=== PATIENT | female | born 1995 | race African-American/Black ===

== ENCOUNTER 2018-10-19 03:14 | Emergency (ER) | payer OTHER ==
[~2018-10-19] VITALS: Ht 165.1 cm; Wt 85.7 kg
[~2018-10-19 03:14] MED LIST: CIPRO500 MG PO; PRILOSEC 20 MG20 MG PO; TRAMADOL 50 MG50 MG PO; UNICOMPLEX M TA1 TA1 PO; ZOFRAN ODT4 MG PO
[2018-10-19 03:56] LABS: URINE BILIRUBIN NEGATIVE (Negative); URINE BLOOD 1+ (Negative); URINE CLARITY CLEAR; URINE COLOR YELLOW; URINE GLUCOSE-RANDOM* NEGATIVE (Negative); URINE KETONES NEGATIVE (Negative); URINE NITRITE-REFLEX NEGATIVE (Negative); URINE PROTEIN (DIPSTICK) NEGATIVE (Negative); URINE UROBILINOGEN 0.2 E.U./dl (0.2-1.0)
[2018-10-19 04:00] LABS: URINE LEUKOCYTES-REFLEX 2+ (Negative)
[2018-10-19 04:07] LABS: MUCUS 0-3 Light strn/LPF (None Seen); SQUAMOUS >10 Many /LPF (0-3)
[2018-10-19 04:08] LABS: BACTERIA-REFLEX >30 Many /HPF (None Seen); CASTS None Seen /LPF (None Seen)
[2018-10-19 04:09] LABS: CRYSTALS None Seen /LPF (None Seen); YEAST-REFLEX Present (None Seen)
[2018-10-19 04:22] LABS: HEMATOCRIT 26.3 % (37.0-47.0); HEMOGLOBIN 8.4 gm/dL (12.0-15.0); MCH 20.1 pg (26.0-34.0); MCHC 31.8 g/dL (28.0-37.0); MCV 63.2 fL (80.0-100.0); RBC 4.16 mil/uL (4.20-5.00); RDW 17.7 % (10.5-14.5); WBC 6.7 thou/uL (4.0-11.0)
[2018-10-19 04:24] LABS: CALCIUM 8.4 mg/dL (8.5-10.1); CREATININE 0.6 mg/dL (0.6-1.0); POTASSIUM 3.6 mmol/L (3.5-5.1)
[2018-10-19] MEDS ORDERED: MOBIC15 MG PO (06:09)
[2018-10-19] MEDS ORDERED: CIPROFLOXACIN500 M1 PO (06:09)
[2018-10-19 06:56] VITALS: BP 139/85
== END 2018-10-19 06:57 | disposition home or self-care (01) ==
LOC: ER 03:14
PROVIDERS: Emergency Medicine
DX: N12 Tubulo-interstitial nephritis, not specified as acute or chronic (principal); J45.909 Unspecified asthma, uncomplicated; I10 Essential (primary) hypertension; F32.9 Major depressive disorder, single episode, unspecified; Z90.49 Acquired absence of other specified parts of digestive tract; Z88.0 Allergy status to penicillin; Z88.1 Allergy status to other antibiotic agents; Z88.2 Allergy status to sulfonamides; Z88.8 Allergy status to other drugs, medicaments and biological substances

== ENCOUNTER 2019-04-01 16:31 | Emergency (ER) | payer OTHER ==
[~2019-04-01] VITALS: Ht 165.1 cm; Wt 80.7 kg
[~2019-04-01 16:31] MED LIST changes: +CIPROFLOXACIN500 M1 PO; +MOBIC15 MG PO
[2019-04-01 17:47] LABS: ABSOLUTE NEUTROPHILS 6.7 thou/uL (1.4-8.2); BASOPHILS 0.7 % (0.0-2.0); EOSINOPHILS 0.6 % (0.0-3.0); HEMATOCRIT 38.5 % (37.0-47.0); HEMOGLOBIN 13.1 gm/dL (12.0-15.0); LYMPHOCYTES 22.4 % (24.0-44.0); MCH 30.1 pg (26.0-34.0); MCHC 33.9 g/dL (28.0-37.0); MCV 88.5 fL (80.0-100.0); MONOCYTES 7.9 % (1.0-8.0); PLATELET COUNT 355 thou/uL (150-400); POLYS 68.4 % (36.0-66.0); RBC 4.34 mil/uL (4.20-5.00); RDW 14.3 % (10.5-14.5); WBC 9.8 thou/uL (4.0-11.0)
[2019-04-01 17:51] LABS: CALCIUM 8.9 mg/dL (8.5-10.1); CREATININE 0.8 mg/dL (0.6-1.0); POTASSIUM 4.3 mmol/L (3.5-5.1)
[2019-04-01 17:57] LABS: ALBUMIN 3.6 g/dL (3.4-5.0); TOTAL BILIRUBIN 0.8 mg/dL (<0.1-1.0); TOTAL PROTEIN 7.3 g/dL (6.4-8.2)
[2019-04-01 19:43] LABS: URINE BILIRUBIN NEGATIVE (Negative); URINE BLOOD NEGATIVE (Negative); URINE CLARITY CLOUDY; URINE COLOR YELLOW; URINE GLUCOSE-RANDOM* NEGATIVE (Negative); URINE KETONES TRACE (Negative); URINE LEUKOCYTES-REFLEX NEGATIVE (Negative); URINE NITRITE-REFLEX NEGATIVE (Negative); URINE PROTEIN (DIPSTICK) TRACE (Negative); URINE SPECIFIC GRAVITY 1.025 (1.005-1.035)
[2019-04-01] MEDS ORDERED: NORCO 5-325 TA1 EAC1 PO (20:15)
[2019-04-01] MEDS ORDERED: NAPROSYN500 MG PO (20:15)
[2019-04-01 20:49] VITALS: BP 118/63
== END 2019-04-01 20:49 | disposition home or self-care (01) ==
LOC: ER 16:31
PROVIDERS: Physician Assistant
DX: R10.11 Right upper quadrant pain (principal); J45.909 Unspecified asthma, uncomplicated; I10 Essential (primary) hypertension; F32.9 Major depressive disorder, single episode, unspecified; Z88.1 Allergy status to other antibiotic agents; Z88.8 Allergy status to other drugs, medicaments and biological substances; Z88.0 Allergy status to penicillin; Z88.2 Allergy status to sulfonamides; Z90.49 Acquired absence of other specified parts of digestive tract

== ENCOUNTER 2019-04-02 07:57 | Inpatient (IN) | payer OTHER ==
[~2019-04-02] VITALS: Ht 165.1 cm; Wt 79.8 kg
[~2019-04-02 07:57] MED LIST changes: +NAPROSYN500 MG PO; +NORCO 5-325 TA1 EAC1 PO
[2019-04-02 07:58] VITALS: BP 121/69
[2019-04-02 08:22] LABS: URINE BLOOD 2+ (Negative); URINE COLOR YELLOW; URINE GLUCOSE-RANDOM* NEGATIVE (Negative); URINE KETONES TRACE (Negative); URINE LEUKOCYTES TRACE (Negative); URINE NITRITE POSITIVE (Negative); URINE PROTEIN (DIPSTICK) 1+ (Negative); URINE SPECIFIC GRAVITY 1.025 (1.005-1.035)
[2019-04-02 08:23] LABS: URINE CLARITY CLOUDY
[2019-04-02 08:24] LABS: ICTOTEST (BILI CONFIRMATORY) Negative (Negative); URINE BILIRUBIN NEGATIVE (Negative)
[2019-04-02 08:29] LABS: ABSOLUTE NEUTROPHILS 2.3 thou/uL (1.4-8.2); BASOPHILS 0.8 % (0.0-2.0); EOSINOPHILS 5.4 % (0.0-3.0); HEMATOCRIT 27.1 % (37.0-47.0); LYMPHOCYTES 29.7 % (24.0-44.0); MCH 19.4 pg (26.0-34.0); MCHC 29.6 g/dL (28.0-37.0); MONOCYTES 6.7 % (1.0-8.0); PLATELET COUNT 289 thou/uL (150-400); POLYS 57.4 % (36.0-66.0); RBC 4.14 mil/uL (4.20-5.00); RDW 18.3 % (10.5-14.5)
[2019-04-02 08:30] LABS: MCV 65.3 fL (80.0-100.0)
[2019-04-02 08:33] LABS: CALCIUM 8.9 mg/dL (8.5-10.1); CREATININE 0.7 mg/dL (0.6-1.0)
[2019-04-02 08:34] LABS: POTASSIUM 3.1 mmol/L (3.5-5.1)
[2019-04-02 08:39] LABS: ALBUMIN 3.9 g/dL (3.4-5.0); TOTAL BILIRUBIN 0.5 mg/dL (<0.1-1.0)
[2019-04-02 08:40] LABS: CASTS None Seen /LPF (None Seen); CRYSTALS None Seen /LPF (None Seen); SQUAMOUS >10 Many /LPF (0-3)
[2019-04-02 08:42] LABS: BACTERIA >30 Many /HPF (None Seen); URINE RBC 0-2 Rare /HPF (0-2); URINE WBC 6-15 Few /HPF (0-5)
[2019-04-02 09:00] LABS: ANISOCYTOSIS 3+; HYPOCHROMASIA 1+; MICROCYTES 3+; OVALOCYTES 2+; PLATELET ESTIMATE NORMAL; SCHISTOCYTES 1+
[2019-04-02 10:57] LABS: HEMOGLOBIN 7.6 gm/dL (12.0-15.0); WBC 4.3 thou/uL (4.0-11.0)
[2019-04-02 11:00] LABS: ABSOLUTE NEUTROPHILS 2.3 thou/uL (1.4-8.2); BASOPHILS 1.2 % (0.0-2.0); EOSINOPHILS 4.5 % (0.0-3.0); HEMATOCRIT 25.6 % (37.0-47.0); LYMPHOCYTES 35.6 % (24.0-44.0); MCH 19.4 pg (26.0-34.0); MCHC 29.6 g/dL (28.0-37.0); MCV 65.5 fL (80.0-100.0); MONOCYTES 5.3 % (1.0-8.0); PLATELET COUNT 263 thou/uL (150-400); POLYS 53.4 % (36.0-66.0); RBC 3.91 mil/uL (4.20-5.00); RDW 18.2 % (10.5-14.5)
[2019-04-02 11:22] LABS: CALCIUM 8.5 mg/dL (8.5-10.1); CREATININE 0.7 mg/dL (0.6-1.0); POTASSIUM 3.7 mmol/L (3.5-5.1)
[2019-04-02 12:40] VITALS: BP 119/72
[2019-04-02 12:48] LABS: % SATURATION 5 % (20-39); IRON 18 ug/dL (50-170); TIBC 398 ug/dL (250-450)
[2019-04-02 12:56] LABS: ANISOCYTOSIS 2+; MICROCYTES 2+; OVALOCYTES 1+; PLATELET ESTIMATE NORMAL
[2019-04-02 13:25] LABS: FOLIC ACID 10.4 ng/mL (8.6-58.9)
[2019-04-02 16:54] VITALS: BP 105/67
[2019-04-02 17:15] VITALS: BP 108/83
--- NOTE | 2019-04-02 18:09 | NUR ---
PT ADMITED FROM ER. ADMISSION HX AND ASSESSMENT COMPLETED. VSS. REPORT HAVING RIGHT ABD PAIN. PRN MED GIVEN. NPO AFTER MIDNIGHT. PT ORIENTED TO THE ROOM AND THE CALL LIGHT SYSTEM. WILL CONTINUE TO MONITOR.
[2019-04-02 19:32] VITALS: BP 101/45
[2019-04-03] VITALS (7 sets, daily range): BP systolic 104–126; BP diastolic 52–83
--- NOTE | 2019-04-03 05:36 | NUR ---
ASSUMED CARE OF PT AT 1900. PT C/O RUQ PAIN. IV AND PO PAIN MEDICATION GIVEN THROUGHOUT NIGHT TO MANAGE PAIN. PT IS SCHEDULED TO HAVE ERCP TODAY 04/03. PT NPO PER ORDER. WILL CONTINUE TO MONITOR PER POC.
[2019-04-03 05:49] LABS: HEMATOCRIT 23.3 % (37.0-47.0); MCH 19.4 pg (26.0-34.0); MCHC 30.1 g/dL (28.0-37.0); MCV 64.4 fL (80.0-100.0); RBC 3.62 mil/uL (4.20-5.00); RDW 18.4 % (10.5-14.5)
--- NOTE | 2019-04-03 13:42 | NUR ---
Received awake on bed. Due medications given as prescribed, pt on NPO- pt informed and aware. A+Ox4. On room air. complained of pain, due PRN pain meds given as prescribed. Up ad coco. with relative at bedside. with SL at L AC- intact and flushing well. Pt for ERCP and stent removal today- a/w time of procedure. Called GI lab re: time of procedure, preparation for procedure and consent, as per GI staff pt can sign consent downstairs, pt may need another IV line if current one is at L AC- new line inserted at L hand. Will take pt done between 9:30-10:30am, pt informed. Pt taken down for procedure at 9:15am. A/w further updates.
[2019-04-03 21:51] LABS: HEMOGLOBIN 8.2 gm/dL (12.0-15.0)
[2019-04-04 05:27] VITALS: BP 96/38
[2019-04-04 05:40] LABS: HEMOGLOBIN 7.7 gm/dL (12.0-15.0); MCH 20.5 pg (26.0-34.0); MCHC 30.7 g/dL (28.0-37.0); MCV 66.7 fL (80.0-100.0); RBC 3.74 mil/uL (4.20-5.00); RDW 19.8 % (10.5-14.5); WBC 3.2 thou/uL (4.0-11.0)
[2019-04-04 05:52] LABS: CALCIUM 8.2 mg/dL (8.5-10.1); CREATININE 0.7 mg/dL (0.6-1.0); POTASSIUM 3.8 mmol/L (3.5-5.1)
--- NOTE | 2019-04-04 07:36 | NUR ---
ASSUMED PT CARE AT 1900. PT IS ALERT AND ORIENTED LAYING IN BED, CRYING. PT STATED SHE WAS IN PAIN. PAIN MED ADMINISTERED TO PT. BLOOD TRANSFUSION COMPLETED AFTER ARRIVAL ON SHIFT. PT TOLEARTED BLOOD ADMINISTRATION. NO SIGN OF DISTRESS NOTED. ASSESSMENT COMPLETED AND DOUMENTED. VSS. SCHEDULED MEDS ADMINISTERED TO PT. PT TOLERATED PO INTAKE. PAIN IS ADEQUATELY MANAGE THROUGHOUT THE NIGHT, DENIES ANY FURTHER NEEDS AT THIS TIME.
[2019-04-04 09:05] VITALS: BP 117/74
[2019-04-04 14:33] LABS: ALBUMIN 3.1 g/dL (3.4-5.0); TOTAL BILIRUBIN 0.5 mg/dL (<0.1-1.0); TOTAL PROTEIN 6.9 g/dL (6.4-8.2)
[2019-04-04 17:07] VITALS: BP 115/60
--- NOTE | 2019-04-04 17:15 | NUR ---
ASSUMED CARE AT 1230, ALERT AND ORIENTED X4. C/O ABD PAIN MEDICATED NEEDED. PATIENT WAS EATING SALAD IN THE ROOM, BROUGHT BY FAMILY AND THIS NURSE ADVISED THE PATIENT ABOUT EATING AND FOLLOWING DR INSTRUCTIONS FOR CLEAR LIQUID DIET.DR ASENCIO NOTIFIED. AND WILL CONTINUE WITH POC.
[2019-04-04 20:00] VITALS: BP 121/79
--- NOTE | 2019-04-05 03:01 | NUR ---
ASSUMED CARE AROUND 1900. AXOX4. MODERATE PAIN TO RUQ. MEDICATED PER MD ORDER. NO S/S ACUTE DISTRESS NOTED OR REPORTED AT THIS TIME. WILL CONT TO MONITOR FOR ANY CHANGES IN CONDITION.
[2019-04-05 09:01] VITALS: BP 123/77
[2019-04-05 09:31] LABS: HEMATOCRIT 27.2 % (37.0-47.0); HEMOGLOBIN 8.6 gm/dL (12.0-15.0); MCH 21.3 pg (26.0-34.0); MCHC 31.6 g/dL (28.0-37.0); MCV 67.4 fL (80.0-100.0); RBC 4.03 mil/uL (4.20-5.00); RDW 19.7 % (10.5-14.5); WBC 3.9 thou/uL (4.0-11.0)
[2019-04-05 09:44] LABS: ALBUMIN 3.2 g/dL (3.4-5.0); CALCIUM 8.4 mg/dL (8.5-10.1); CREATININE 0.7 mg/dL (0.6-1.0); POTASSIUM 3.6 mmol/L (3.5-5.1); TOTAL BILIRUBIN 0.2 mg/dL (<0.1-1.0); TOTAL PROTEIN 6.9 g/dL (6.4-8.2)
[2019-04-05 13:04] VITALS: BP 125/72
[2019-04-05 16:20] VITALS: BP 135/95
--- NOTE | 2019-04-05 17:01 | NUR ---
ASSUMED CARE AT SHIFT CHANGE, ALERT AND ORIENTED X4. VSS. GLYCOL PO GIVEN AND PATIENT HAD 3 BM, AND SHE TOLERATED MEDICATION WELL. NPO AFTER MN FOR EGD AND CLONOSCOPY.C/O PAIN AND NAUSEA X1 TODAY AND MEDICATED. AND WILL CONTINUE WITH POC.
[2019-04-05 18:45] VITALS: BP 127/67
[2019-04-05 19:15] VITALS: BP 116/68
--- NOTE | 2019-04-06 04:49 | NUR ---
ASSUMED CARE AROUND 1900. AXOX4. BOWEL PREP COMPLETED. KEPT NPO AFTER MN FOR EGD AND COLONOSCOPY IN AM. NO S/S ACUTE DISTRESS NOTED OR REPORTED AT THIS TIME. WILL CONT TO MONITOR FOR ANY CHANGES IN CONDITION.
[2019-04-06 08:15] VITALS: BP 112/60
--- NOTE | 2019-04-06 14:21 | NUR ---
Assumed pt care this am, received NPO and bowels clear fro colonoscopy and EGD. Pt was taken down shortly after shift changed and returned at 9:15 am. VS have been stable, pt is up at coco. Denies and nausea or vomiting, mild discomfort felt post op but pt did not ask for any pain medication. Pt wanting to go home today stating she is feeling so much better. POC followed no signs of distress have been noted.
[2019-04-06] MEDS ORDERED: ACETAMINOPHEN325 M1 PO (15:03)
[2019-04-06] MEDS ORDERED: DOXYCYCLINE 10100 MG PO (15:03)
[2019-04-06] MEDS ORDERED: PERCOCET 10-321 EACH PO (15:03)
[2019-04-06] MEDS ORDERED: AMBIEN 5 MG TABL5 M1 PO (15:03)
[2019-04-06 15:21] VITALS: BP 112/60
--- NOTE | 2019-04-07 15:37 | P ---
[facility] [place] [address] [place] [address] PROCEDURE REPORT Name: BRICE DE GUZMAN Room #: 458-P [facility] IN M.R.#: [id number] Admission: 04/02/19 ������������������ Attend Phys: Asad Adorno MD Discharge: 04/06/19 ������������������ Date of : 89 Report #: [id number] THIS REPORT FOR: //name// CC: DON physician/PCP Asad Adorno NO PCP INPATIENT COLONOSCOPY BRIEF HISTORY: The patient is a 23-year-old woman with marked iron deficiency anemia requiring blood transfusion. She reports that her menses are normal. PREOPERATIVE DIAGNOSIS: Iron deficiency anemia. POSTOPERATIVE DIAGNOSIS: Small internal hemorrhoids. MEDICATIONS: Deep sedation with propofol per anesthesia. SPECIMEN: None. ESTIMATED BLOOD LOSS: None. PROCEDURE: Colonoscopy to cecum and terminal ileum. FINDINGS: Prior to propofol sedation, procedure of colonoscopy discussed with the patient as well as potential risks and its complications. She indicates she understands and desires to proceed. DESCRIPTION OF PROCEDURE: With the patient in left lateral decubitus position, digital examination was completed, which revealed no abnormalities. Subsequently, the Olympus video colonoscope was introduced in the rectum and advanced under direct vision to the cecum. This was done with minimal difficulty. The cecum was identified by the ileocecal valve and the appendiceal orifice. I was able to visualize the distal segment of the terminal ileum, which was inspected and noted to be unremarkable. At that point, the scope was slowly withdrawn and careful circumferential views were obtained including retroflexing the scope in the ascending colon. Upon slow withdrawal of the scope, the mucosa was inspected. There were some limitations of the prep in the proximal colon. There was a thin coating of bilious material. Unfortunately, it was not very tenacious and much of it washed off with the scope irrigated. We extensively cleaned the proximal colon and overall obtained a good prep. At that point, the scope was slowly withdrawn and careful circumferential views were obtained including retroflexion. The mucosa was within normal limits, normal vascular pattern, normal light reflex. No mucosal abnormalities were seen. No blood was seen on this examination. Possible bleeding lesions were not seen. Specifically, AVMs or vascular ectasias were not seen. No neoplastic lesions were seen. The scope was withdrawn in the rectum and no abnormalities [facility] [address] [place] [address] PROCEDURE REPORT Name: BRICE DE GUZMAN Room #: 458-P DIS IN M.R.#: [id number] Admission: 04/02/19 ������������������ Attend Phys: Asad Adorno MD Discharge: 04/06/19 ������������������ Date of : [birth year] Report #: [id number] were seen. Upon retroflexion, small hemorrhoids were seen. The scope was withdrawn. The patient tolerated the procedure well. DISPOSITION: The patient with marked iron deficiency anemia. No bleeding lesions or mucosal abnormalities were seen. This patient should be on iron supplementation. I suggest she see a collar baster jumpbasting as I suspect her anemia was primarily related to blood loss from her menses. If further GI evaluation is deemed to be necessary, evaluation of the small bowel would be the next step. Also, please see upper endoscopy report for additional details. ��������������������������������������������� <ELECTRONICALLY SIGNED> ���������������������������������������� By: Jese Maldonado MD ��������������������������������������������� 04/07/19 1537 1030 [id number] Jese Maldonado MD /nt
--- NOTE | 2019-04-07 15:37 | P ---
[facility] [place] [address] [place] [address] PROCEDURE REPORT Name: BRICE DE GUZMAN Room #: 458-P [facility] IN M.R.#: [id number] Admission: 04/02/19 ������������������ Attend Phys: Asad Adorno MD Discharge: 04/06/19 ������������������ Date of : [birth year] Report #: [id number] THIS REPORT FOR: //name// CC: DON physician/PCP Asad CHAVEZ PCP DATE OF SERVICE: 04/06/2019 BRIEF HISTORY: The patient is a 23-year-old woman with marked iron deficiency anemia. She has been asymptomatic. She reports her menstrual periods are normal. PREOPERATIVE DIAGNOSIS: Marked iron deficiency anemia requiring blood transfusion. POSTOPERATIVE DIAGNOSIS: Mild erythematous gastritis. MEDICATIONS: Deep sedation with propofol per anesthesia. SPECIMENS: 1. Small bowel biopsies to rule out celiac disease. 2. Biopsies of gastritis. ESTIMATED BLOOD LOSS: 3 mL. PROCEDURE: EGD with biopsy. FINDINGS: Prior to propofol sedation, procedure of upper endoscopy discussed with the patient as well as potential risks and its complications. She indicates she understands and desires to proceed. DESCRIPTION OF PROCEDURE: With the patient in left lateral decubitus position, the Olympus video endoscope was inserted in the cervical esophagus under direct vision without difficulty. Examination of this organ through its entire length revealed normal esophageal mucosa down the squamocolumnar junction. The squamocolumnar junction was inspected and noted to be unremarkable. No evidence of ulcers, erosions or bleeding lesions. A hiatus hernia was not seen. The scope was advanced in the stomach, was examined on end view as well as retroflexed views. There was a pattern of diffuse gastritis. There were linear erythematous changes in the antrum and body. However, no ulcers or erosions were seen. No blood was seen. AVMs were not seen. Upon retroflexion, no mass lesions were seen. Random biopsies were obtained. The pylorus, duodenal bulb and postbulbar duodenal sweep were inspected and noted to be unremarkable. No evidence of ulcers, erosions or AVMs. Multiple biopsies were obtained to evaluate for celiac disease. At that point, the scope was slowly withdrawn and [facility] [address] [place] [address] PROCEDURE REPORT Name: GEGEBRICE Room #: 458-P [facility] IN M.R.#: [id number] Admission: 04/02/19 ������������������ Attend Phys: Asad Adorno MD Discharge: 04/06/19 ������������������ Date of : [birth year] Report #: [id number] careful circumferential views confirmed the above findings. The patient tolerated the procedure well. DISPOSITION: No obvious source for gastrointestinal blood loss. Proceed with colonoscopy at this time. Follow up on biopsies. ��������������������������������������������� <ELECTRONICALLY SIGNED> ���������������������������������������� By: Jese Maldonado MD ��������������������������������������������� 04/07/19 1537 0956 [id number] Jese Maldonado MD /nt
--- NOTE | 2019-04-07 15:37 | P ---
[facility] [place] [address] [place] [address] PROCEDURE REPORT Name: BRICE DE GUZMAN Room #: 458-P [facility] IN M.R.#: [id number] Admission: 04/02/19 ������������������ Attend Phys: Asad Adorno MD Discharge: 04/06/19 ������������������ Date of : 93 Report #: [id number] THIS REPORT FOR: //name// CC: DON physician/PCP Asad Adorno NO PCP BRIEF HISTORY: The patient is a 23-year-old woman with a history of cholelithiasis and choledocholithiasis in 2017. ERCP and sphincterotomy was performed, but the stones could not be removed from the duct and a stent was placed. She subsequently had a laparoscopic cholecystectomy. An intraoperative cholangiogram was obtained, but the stones could not be removed. The patient was to return in several months to have the stent removed as well as stone removal. She did not return as instructed. She then presented to [facility] yesterday with 1 week of epigastric and right upper quadrant pain. CT reveals an indwelling stent within the common bile duct. She also has ductal dilation. PREOPERATIVE DIAGNOSIS: Choledocholithiasis with indwelling biliary stent. POSTOPERATIVE DIAGNOSES: 1. Choledocholithiasis. 2. Indwelling biliary stent. MEDICATIONS: Intubation general anesthesia. SPECIMEN: The stent and multiple stones removed and discarded. ESTIMATED BLOOD LOSS: None. PROCEDURE: EGD with removal of stent followed by ERCP, sphincterotomy and stone extraction. FINDINGS: Prior to intubation and general anesthesia, the procedure of ERCP, stent removal and stone removal was discussed with the patient as well as potential risks and its complications. She indicates she understands and desires to proceed. DESCRIPTION OF PROCEDURE: The patient was induced with general anesthesia and placed in the prone position. Subsequently, the Olympus video endoscope was inserted in cervical esophagus under direct vision without difficulty. Examination of this organ through its entire length revealed normal esophageal mucosa. Squamocolumnar junction was unremarkable. The scope was advanced in the stomach, was examined on end view as well as retroflexed views and was unremarkable. The pylorus was normal. Duodenal bulb was normal. The scope was advanced into the second portion of duodenum and the stent was seen exiting from the duodenal papilla. The stent was grasped with a polypectomy snare, and the [facility] [address] [place] [address] PROCEDURE REPORT Name: BRICE DE GUZMAN Room #: 458-P [facility] IN .R.#: [id number] Admission: 04/02/19 ������������������ Attend Phys: Asad Adorno MD Discharge: 04/06/19 ������������������ Date of : [birth year] Report #: [id number] stent and scope were pulled out in tandem. The stent was examined once this was removed. It was encrusted with a crystal like material. Also, the stent was completely intact and thus the entire stent was removed with this maneuver. Subsequently, the Olympus side-viewing endoscope was inserted in cervical esophagus and advanced to the esophagus, stomach, across the pylorus into the duodenum. The papilla was identified. It was mildly traumatized from stent removal. Also the papilla appeared to be somewhat edematous. There was evidence of a previous sphincterotomy. We very easily cannulated with a 0.25 sphincterotome. Contrast was injected. There was moderate dilation of the common hepatic duct and lesser dilation of the distal duct. Several filling defects were seen. Although she had a sphincterotomy, it appeared to be somewhat small. The intraduodenal segment of the papilla was well seen and we extended the sphincterotomy. We then pulled out the sphincterotome and 3 small stones came out of the sphincterotome ranging in size from 2 mm to about 4 mm. We then inserted a balloon catheter. We initially used a 3-level balloon with a maximum of 20 mm. The 20 mm was too tight in the common hepatic duct, however, 15 mm barely fit the lumen and thus the size of the common hepatic duct was about the range of 15 mm. As we pulled the balloon distally, the balloon would not pass and we had to bring the balloon under 12 mm to move into the distal duct. We made several passes and several additional stones were extracted from the duct. We then went to a smaller balloon catheter and with mild difficulty, the 8.5 mm size balloon was pulled through the sphincterotomy site. We then injected contrast and the duct and used the balloon to tamponade the duct. The common hepatic duct and proximal common bile duct were clear of stones. However, distally, several small filling defects remained. We made several passes with the balloon, but they persisted. We then used a 1.5 cm trapezoid basket and pulled it through the entire length of the duct on multiple occasions and no additional stones were obtained. We then reinserted the balloon catheter and filled the duct and used the balloon to tamponade the duct and on this occasion, no residual filling defects were seen. We then removed the balloon catheter and guidewire and scope and on final images, the duct appeared to be clear and was draining. The patient tolerated the procedure well. DISPOSITION: The patient with history of choledocholithiasis and indwelling stent for more than 2 years. The stent was removed and the duct has been cleared. It is possible there may be some small remaining debris. However, the sphincterotomy was extended and should allow passage of very tiny stones or gravel-like material. The patient tolerated the procedure well. ��������������������������������������������� <ELECTRONICALLY SIGNED> ���������������������������������������� By: Jese Maldonado MD ��������������������������������������������� 04/07/19 1537 [id number] [id number] Jese Maldonado MD /nt
--- NOTE | 2019-04-08 19:06 | PATH ---
[facility] [place] [address] PATHOLOGY RPT PROCEDURE Name: BRICE HARMAN Room #: 458-P DIS IN M.R.#: [id number] ������������������ Admission: 04/02/19 ������������������ Date of : 89 Discharge: 04/06/19 Report #: [id number] Path Case #: [id number] [facility] Accession Number: [id number] . 01 Material submitted: . PART A: small bowel - SMALL BOWEL BX PART B: stomach - GASTRITIS BX . 01 Clinical history: . Preop DX: Anemia Postop DX: Gastritis, hemorrhoids A. R/O celiac disease, anemia B. R/O H pylori . 02 Diagnosis: A. Small bowel mucosa, small bowel rule out celiac, endoscopic biopsy: - Fundic-type metaplasia associated with mild acute and nonspecific duodenitis. - Negative for villous blunting or increase in intraepithelial lymphocytes. . B. Gastric mucosa, gastritis R/O H. pylori, endoscopic biopsy: - Mild chronic active gastritis. - Negative for intestinal metaplasia or atrophy. - Negative for Helicobacter pylori (properly-controlled immunohistochemical stain performed). . (IUV:mml; 04/08/2019) QL 04/08/2019 1404 Local . 02 Electronically signed: . Kayce Conti MD, Pathologist NPI- [id number] . 01 Gross description: . A. Received in formalin labeled "Brice Hraman, small bowel BX R/O celiac dz," are five segments of mendenhall soft tissue measuring 0.8 x 0.6 x 0.2 cm in aggregate dimensions and ranging from 0.2 to 0.5 cm in maximum dimension. The specimen is submitted entirely in cassette A1. . B. Received in formalin labeled "Brice Harman, BX gastritis R/O H pylori," are five segments of mendenhall soft tissue measuring 0.8 x 0.4 x 0.2 cm in aggregate dimensions and ranging from 0.1 to 0.6 cm in maximum dimension. The specimen is submitted entirely in cassette B1. The smallest segment may not survive processing. ([facility]; 04/07/2019) XDC/XDC 04/07/2019 [address] [place] [address] PATHOLOGY RPT PROCEDURE Name: BRICE HARMAN Room #: 458-P DIS IN M.R.#: [id number] ������������������ Admission: 04/02/19 ������������������ Date of : 89 Discharge: 04/06/19 Report #: [id number] Path Case #: [id number] . 02 Pathologist provided ICD-10: K29.80, K29.50 . 02 CPT . 929976, [id number], [id number] Specimen Comment: A courtesy copy of this report has been sent to Specimen Comment: [phone], . Specimen Comment: Report sent to / DR SALTER Performed at: [address], [place] [id number] MD Harvey Gutierrez MD Phone: [phone] Performed at: [address] [id number] MD Kayce Conti MD Phone: [phone]
== END 2019-04-06 16:18 | disposition home or self-care (01) | DRG 920 ==
LOC: ER 07:57 → EROBS 11:03 → 2N 11:03 → 4W 04-05 18:41
PROVIDERS: Emergency Medicine; Internal Medicine; Nurse Practitioner; ADMIT Hospitalist
PROC: 0FC98ZZ Extirpation of Matter from Common Bile Duct, Via Natural or Artificial Opening Endoscopic (ICD-10-PCS; principal; 2019-04-03)
PROC: 0FPB8DZ Removal of Intraluminal Device from Hepatobiliary Duct, Via Natural or Artificial Opening Endoscopic (ICD-10-PCS; principal; 2019-04-03)
PROC: 0DJD8ZZ Inspection of Lower Intestinal Tract, Via Natural or Artificial Opening Endoscopic (ICD-10-PCS; 2019-04-06)
PROC: 0DB68ZX Excision of Stomach, Via Natural or Artificial Opening Endoscopic, Diagnostic (ICD-10-PCS; 2019-04-06)
PROC: 0DB88ZX Excision of Small Intestine, Via Natural or Artificial Opening Endoscopic, Diagnostic (ICD-10-PCS; 2019-04-06)
DX: T85.590A Other mechanical complication of bile duct prosthesis, initial encounter (principal); K80.71 Calculus of gallbladder and bile duct without cholecystitis with obstruction; N39.0 Urinary tract infection, site not specified; K80.31 Calculus of bile duct with cholangitis, unspecified, with obstruction; I10 Essential (primary) hypertension; J45.909 Unspecified asthma, uncomplicated; F32.9 Major depressive disorder, single episode, unspecified; E87.6 Hypokalemia; D50.9 Iron deficiency anemia, unspecified; R16.0 Hepatomegaly, not elsewhere classified; F17.210 Nicotine dependence, cigarettes, uncomplicated; K64.8 Other hemorrhoids; K29.70 Gastritis, unspecified, without bleeding; N92.0 Excessive and frequent menstruation with regular cycle; B96.20 Unspecified Escherichia coli [E. coli] as the cause of diseases classified elsewhere; Z16.24 Resistance to multiple antibiotics; Y83.8 Other surgical procedures as the cause of abnormal reaction of the patient, or of later complication, without mention of misadventure at the time of the procedure; Z90.49 Acquired absence of other specified parts of digestive tract; Z79.899 Other long term (current) drug therapy; Z88.1 Allergy status to other antibiotic agents; Z88.0 Allergy status to penicillin; Z88.2 Allergy status to sulfonamides; Z88.8 Allergy status to other drugs, medicaments and biological substances; Y92.89 Other specified places as the place of occurrence of the external cause
CPT/HCPCS: 10040; 10194; 62110; 62900; 70005

== ENCOUNTER 2019-05-16 19:42 | Emergency (ER) | payer OTHER ==
[~2019-05-16] VITALS: Ht 165.1 cm; Wt 81.7 kg
[~2019-05-16 19:42] MED LIST changes: +ACETAMINOPHEN325 M1 PO; +AMBIEN 5 MG TABL5 M1 PO; +DOXYCYCLINE 10100 MG PO; +PERCOCET 10-321 EACH PO
[2019-05-16 20:38] LABS: ABSOLUTE NEUTROPHILS 3.8 thou/uL (1.4-8.2); BASOPHILS 0.9 % (0.0-2.0); EOSINOPHILS 5.3 % (0.0-3.0); HEMOGLOBIN 11.2 gm/dL (12.0-15.0); LYMPHOCYTES 30.5 % (24.0-44.0); MCH 25.5 pg (26.0-34.0); MCV 79.6 fL (80.0-100.0); MONOCYTES 3.6 % (1.0-8.0); PLATELET COUNT 232 thou/uL (150-400); POLYS 59.7 % (36.0-66.0); RBC 4.39 mil/uL (4.20-5.00); RDW 28.3 % (10.5-14.5); WBC 6.4 thou/uL (4.0-11.0)
[2019-05-16 20:53] LABS: CALCIUM 8.8 mg/dL (8.5-10.1); CREATININE 0.7 mg/dL (0.6-1.0); POTASSIUM 3.4 mmol/L (3.5-5.1)
[2019-05-16 20:55] LABS: URINE BILIRUBIN NEGATIVE (Negative); URINE BLOOD NEGATIVE (Negative); URINE CLARITY CLEAR; URINE COLOR YELLOW; URINE GLUCOSE-RANDOM* TRACE (Negative); URINE KETONES NEGATIVE (Negative); URINE LEUKOCYTES-REFLEX TRACE (Negative); URINE NITRITE-REFLEX NEGATIVE (Negative); URINE PROTEIN (DIPSTICK) TRACE (Negative)
[2019-05-16 20:57] LABS: ALBUMIN 3.8 g/dL (3.4-5.0); TOTAL BILIRUBIN 0.3 mg/dL (<0.1-1.0); TOTAL PROTEIN 7.6 g/dL (6.4-8.2)
[2019-05-16] MEDS ORDERED: ZOFRAN ODT4 MG PO (21:38)
[2019-05-16] MEDS ORDERED: NORCO 5-325 TA1 EAC1 PO (21:38)
[2019-05-16 21:41] LABS: ANISOCYTOSIS 3+
[2019-05-16 21:51] LABS: OVALOCYTES 2+
[2019-05-16 21:53] LABS: SCHISTOCYTES FEW
[2019-05-16] MEDS ORDERED: ATIVAN0.5 M1 PO (23:41)
[2019-05-17 00:04] VITALS: BP 103/59
== END 2019-05-17 00:05 | disposition home or self-care (01) ==
LOC: ER 19:42
PROVIDERS: Nurse Practitioner Family
DX: R10.84 Generalized abdominal pain (principal); R10.11 Right upper quadrant pain; R10.12 Left upper quadrant pain; R11.2 Nausea with vomiting, unspecified; R55 Syncope and collapse; J45.909 Unspecified asthma, uncomplicated; F32.9 Major depressive disorder, single episode, unspecified; Z90.49 Acquired absence of other specified parts of digestive tract; Z88.1 Allergy status to other antibiotic agents; Z88.0 Allergy status to penicillin; Z88.2 Allergy status to sulfonamides; Z88.8 Allergy status to other drugs, medicaments and biological substances

== ENCOUNTER 2019-08-23 12:59 | Emergency (ER) | payer OTHER ==
[~2019-08-23] VITALS: Ht 165.1 cm; Wt 77.1 kg
[~2019-08-23 12:59] MED LIST changes: +ATIVAN0.5 M1 PO
[2019-08-23 14:11] LABS: ABSOLUTE NEUTROPHILS 7.6 thou/uL (1.4-8.2); BASOPHILS 0.2 % (0.0-2.0); EOSINOPHILS 0.5 % (0.0-3.0); HEMATOCRIT 36.3 % (37.0-47.0); HEMOGLOBIN 11.2 gm/dL (12.0-15.0); LYMPHOCYTES 9.8 % (24.0-44.0); MCH 25.5 pg (26.0-34.0); MCHC 30.9 g/dL (28.0-37.0); MCV 82.5 fL (80.0-100.0); MONOCYTES 1.5 % (1.0-8.0); PLATELET COUNT 246 thou/uL (150-400); RDW 16.2 % (10.5-14.5); WBC 8.7 thou/uL (4.0-11.0)
[2019-08-23 14:14] LABS: URINE BILIRUBIN NEGATIVE (Negative); URINE BLOOD 2+ (Negative); URINE CLARITY SL CLOUDY; URINE COLOR YELLOW; URINE GLUCOSE-RANDOM* NEGATIVE (Negative); URINE KETONES NEGATIVE (Negative); URINE LEUKOCYTES-REFLEX 2+ (Negative); URINE NITRITE-REFLEX POSITIVE (Negative); URINE PROTEIN (DIPSTICK) TRACE (Negative); URINE UROBILINOGEN 0.2 E.U./dl (0.2-1.0)
[2019-08-23 14:16] LABS: CALCIUM 8.8 mg/dL (8.5-10.1); CREATININE 0.9 mg/dL (0.6-1.0); POTASSIUM 3.9 mmol/L (3.5-5.1)
[2019-08-23 14:22] LABS: CASTS None Seen /LPF (None Seen); SQUAMOUS >10 Many /LPF (0-3)
[2019-08-23 14:23] LABS: BACTERIA-REFLEX >30 Many /HPF (None Seen); CRYSTALS None Seen /LPF (None Seen); URINE RBC 3-10 Few /HPF (0-2)
[2019-08-23] MEDS ORDERED: IBUPROFEN 600600 M1 PO (15:51)
[2019-08-23] MEDS ORDERED: CIPRO500 M1 PO (15:51)
[2019-08-23 16:54] VITALS: BP 113/66
== END 2019-08-23 16:55 | disposition home or self-care (01) ==
LOC: ER 12:59
PROVIDERS: Physician Assistant
DX: N12 Tubulo-interstitial nephritis, not specified as acute or chronic (principal); J45.909 Unspecified asthma, uncomplicated; F32.9 Major depressive disorder, single episode, unspecified; Z90.49 Acquired absence of other specified parts of digestive tract; Z88.1 Allergy status to other antibiotic agents; Z88.0 Allergy status to penicillin; Z88.2 Allergy status to sulfonamides; Z88.8 Allergy status to other drugs, medicaments and biological substances

== ENCOUNTER 2020-07-12 22:26 | Emergency (ER) | payer OTHER ==
[~2020-07-12] VITALS: Ht 165.1 cm; Wt 79.4 kg
[~2020-07-12 22:26] MED LIST changes: +CIPRO500 M1 PO; +IBUPROFEN 600600 M1 PO
[2020-07-12] MEDS ORDERED: IBUPROFEN 600600 M1 PO (23:38)
[2020-07-12] MEDS ORDERED: PROMETH-CODEIN 65 ML PO (23:38)
[2020-07-12 23:54] VITALS: BP 119/64
[2020-07-12] MEDS ORDERED: VENTOLIN HFA 1818 GM INH (23:54)
== END 2020-07-12 23:54 | disposition home or self-care (01) ==
LOC: ER 22:26
DX: J06.9 Acute upper respiratory infection, unspecified (principal); B97.89 Other viral agents as the cause of diseases classified elsewhere; J45.909 Unspecified asthma, uncomplicated; Z88.0 Allergy status to penicillin; Z88.1 Allergy status to other antibiotic agents; Z88.2 Allergy status to sulfonamides; Z88.8 Allergy status to other drugs, medicaments and biological substances; Z20.828 Contact with and (suspected) exposure to other viral communicable diseases

== ENCOUNTER 2020-07-26 21:31 | Emergency (ER) | payer OTHER ==
[~2020-07-26] VITALS: Ht 165.1 cm; Wt 81.7 kg
[~2020-07-26 21:31] MED LIST changes: +PROMETH-CODEIN 65 ML PO; +VENTOLIN HFA 1818 GM INH
[2020-07-26 23:01] LABS: URINE BILIRUBIN NEGATIVE (Negative); URINE BLOOD 3+ (Negative); URINE CLARITY CLEAR; URINE COLOR YELLOW; URINE GLUCOSE-RANDOM* TRACE (Negative); URINE KETONES NEGATIVE (Negative); URINE PROTEIN (DIPSTICK) TRACE (Negative); URINE UROBILINOGEN 0.2 E.U./dl (0.2-1.0)
[2020-07-26 23:06] LABS: URINE LEUKOCYTES-REFLEX 1+ (Negative); URINE NITRITE-REFLEX POSITIVE (Negative)
[2020-07-26 23:23] LABS: BACTERIA-REFLEX >30 Many /HPF (None Seen); SQUAMOUS 4-10 Moderate /LPF (0-3); URINE RBC 0-2 Rare /HPF (0-2); URINE WBC-REFLEX 6-15 Few /HPF (0-5)
[2020-07-26 23:24] LABS: CASTS None Seen /LPF (None Seen); CRYSTALS None Seen /LPF (None Seen); MUCUS 0-3 Light strn/LPF (None Seen)
[2020-07-27] MEDS ORDERED: FLAGYL500 M1 PO (01:03)
[2020-07-27] MEDS ORDERED: LEVAQUIN 500 M500 MG PO (01:03)
[2020-07-27 01:45] VITALS: BP 97/68
== END 2020-07-27 01:41 | disposition home or self-care (01) ==
LOC: ER 21:31
PROVIDERS: Emergency Medicine
DX: N39.0 Urinary tract infection, site not specified (principal); J45.909 Unspecified asthma, uncomplicated; Z79.1 Long term (current) use of non-steroidal anti-inflammatories (NSAID); Z79.899 Other long term (current) drug therapy; Z88.0 Allergy status to penicillin; Z88.1 Allergy status to other antibiotic agents; Z88.8 Allergy status to other drugs, medicaments and biological substances; Z20.828 Contact with and (suspected) exposure to other viral communicable diseases

== ENCOUNTER 2020-09-28 22:18 | Emergency (ER) | payer OTHER ==
[~2020-09-28] VITALS: Ht 165.1 cm; Wt 81.7 kg
[~2020-09-28 22:18] MED LIST changes: +FLAGYL500 M1 PO; +LEVAQUIN 500 M500 MG PO
[2020-09-28] MEDS ORDERED: ROBAXIN 750 MG750 MG PO (22:57)
[2020-09-28 23:10] VITALS: BP 140/69
== END 2020-09-28 23:10 | disposition home or self-care (01) ==
LOC: ER 22:18
DX: S16.1XXA Strain of muscle, fascia and tendon at neck level, initial encounter (principal); S09.90XA Unspecified injury of head, initial encounter; J45.909 Unspecified asthma, uncomplicated; Z79.1 Long term (current) use of non-steroidal anti-inflammatories (NSAID); Z79.899 Other long term (current) drug therapy; Z88.0 Allergy status to penicillin; Z88.1 Allergy status to other antibiotic agents; Z88.2 Allergy status to sulfonamides; Z88.8 Allergy status to other drugs, medicaments and biological substances; V43.52XA Car driver injured in collision with other type car in traffic accident, initial encounter; Y93.89 Activity, other specified; Y92.89 Other specified places as the place of occurrence of the external cause; Y99.8 Other external cause status

== ENCOUNTER 2020-12-09 19:53 | Emergency (ER) | payer OTHER ==
[~2020-12-09] VITALS: Ht 165.1 cm; Wt 83.9 kg
[~2020-12-09 19:53] MED LIST changes: +ROBAXIN 750 MG750 MG PO
[2020-12-09 19:55] VITALS: BP 143/78
[2020-12-09] MEDS ORDERED: ACETAMINOPHEN (20:01)
== END 2020-12-09 21:00 | disposition home or self-care (01) ==
LOC: ER 19:53
DX: S10.91XA Abrasion of unspecified part of neck, initial encounter (principal); S09.90XA Unspecified injury of head, initial encounter; J45.909 Unspecified asthma, uncomplicated; F32.9 Major depressive disorder, single episode, unspecified; F17.210 Nicotine dependence, cigarettes, uncomplicated; Z98.51 Tubal ligation status; Z90.49 Acquired absence of other specified parts of digestive tract; Z79.899 Other long term (current) drug therapy; Z88.1 Allergy status to other antibiotic agents; Z88.0 Allergy status to penicillin; Z88.2 Allergy status to sulfonamides; Z88.8 Allergy status to other drugs, medicaments and biological substances; Y04.8XXA Assault by other bodily force, initial encounter; Y93.89 Activity, other specified; Y92.89 Other specified places as the place of occurrence of the external cause; Y99.8 Other external cause status

== ENCOUNTER 2021-06-13 10:39 | Emergency (ER) | payer OTHER ==
[~2021-06-13] VITALS: Ht 165.1 cm; Wt 95.3 kg
[~2021-06-13 10:39] MED LIST changes: +ACETAMINOPHEN
[2021-06-13] MEDS ORDERED: FIBER500 MG PO (10:55)
[2021-06-13] MEDS ORDERED: MULTIVITAMIN1 EACH PO (10:56)
[2021-06-13 12:25] LABS: ABSOLUTE NEUTROPHILS 2.9 thou/uL (1.4-8.2); BASOPHILS 0.8 % (0.0-2.0); EOSINOPHILS 6.6 % (0.0-3.0); HEMATOCRIT 34.6 % (37.0-47.0); HEMOGLOBIN 10.4 gm/dL (12.0-15.0); LYMPHOCYTES 28.5 % (24.0-44.0); MCH 20.9 pg (26.0-34.0); MCHC 30.2 g/dL (28.0-37.0); MCV 69.3 fL (80.0-100.0); MONOCYTES 4.6 % (1.0-8.0); PLATELET COUNT 355 thou/uL (150-400); POLYS 59.5 % (36.0-66.0); RBC 4.99 mil/uL (4.20-5.00); RDW 17.9 % (10.5-14.5); WBC 4.8 thou/uL (4.0-11.0)
[2021-06-13 12:33] LABS: CREATININE 0.7 mg/dL (0.6-1.0); POTASSIUM 3.8 mmol/L (3.5-5.1)
[2021-06-13 12:34] LABS: URINE BILIRUBIN NEGATIVE (Negative); URINE BLOOD TRACE (Negative); URINE COLOR YELLOW; URINE GLUCOSE-RANDOM* NEGATIVE (Negative); URINE KETONES NEGATIVE (Negative); URINE LEUKOCYTES-REFLEX 1+ (Negative); URINE NITRITE-REFLEX NEGATIVE (Negative); URINE PROTEIN (DIPSTICK) TRACE (Negative); URINE SPECIFIC GRAVITY >= 1.030 (1.005-1.035); URINE UROBILINOGEN 0.2 E.U./dl (0.2-1.0)
[2021-06-13 12:35] LABS: URINE CLARITY HAZY
[2021-06-13 12:39] LABS: ALBUMIN 3.9 g/dL (3.4-5.0); TOTAL BILIRUBIN 0.4 mg/dL (0.2-1.0); TOTAL PROTEIN 8.6 g/dL (6.4-8.2)
[2021-06-13 13:01] LABS: SQUAMOUS >10 Many /LPF (0-3)
[2021-06-13 13:02] LABS: CASTS None Seen /LPF (None Seen)
[2021-06-13 13:03] LABS: BACTERIA-REFLEX 1-9 Few /HPF (None Seen); CRYSTALS None Seen /LPF (None Seen)
[2021-06-13 15:28] VITALS: BP 121/73
[2021-06-16] MEDS ORDERED: CIPROFLOXACIN500 M1 PO (10:38)
[2021-06-16] MEDS ORDERED: LEVAQUIN 500 M500 MG PO (10:50)
== END 2021-06-13 15:28 | disposition home or self-care (01) ==
LOC: ER 10:39
PROVIDERS: Emergency Medicine
DX: K64.9 Unspecified hemorrhoids (principal); K62.5 Hemorrhage of anus and rectum; R10.32 Left lower quadrant pain; J45.909 Unspecified asthma, uncomplicated; F32.9 Major depressive disorder, single episode, unspecified; F17.210 Nicotine dependence, cigarettes, uncomplicated; Z90.49 Acquired absence of other specified parts of digestive tract; Z98.51 Tubal ligation status; Z79.899 Other long term (current) drug therapy; Z88.2 Allergy status to sulfonamides; Z88.0 Allergy status to penicillin; Z88.1 Allergy status to other antibiotic agents